=== PATIENT | male | born 1955 | race Caucasian/White ===

== ENCOUNTER → 2017-02-27 | Outpatient (CLI) | payer OTHER ==
[~2017-02-27] VITALS: Ht 167.6 cm; Wt 97.1 kg
[~2017-02-27] MED LIST: ATROVENT 00.5 MG/2.5 IH; AUGMENTIN875 MG PO; CLONAZEPAM0.5 MG PO; DAILY VITAMIN1 EAC8 PO; FLEXERIL10 MG PO; FLUOXETINE HCL20 MG PO; IRON325 MG PO; LOPID600 MG PO; MAXZIDE 75/501 EACH PO; METFORMIN HCL500 MG PO; NEURONTIN300 MG PO; ONE-A-DAY ESSE1 EAC1 PO; PENTOXIFYLLINE400 MG PO; PRAVACHOL40 MG PO; PRAVACHOL80 MG PO; PRILOSEC20 MG PO; PROAIR HFA8.5 GM IH; PROTONIX40 MG PO; PROZAC20 MG PO; REQUIP0.25 MG PO; REQUIP0.5 MG PO; TEMAZEPAM30 MG PO; THEO-DUR,THEOC200 MG PO; TYLENOL REGULA325 MG PO; ULTRAM50 MG PO; ZETIA10 MG PO
[2017-02-27 14:32] LABS: POINT-OF-CARE METER ID UU13113694
[2017-02-27 15:48] LABS: POINT-OF-CARE METER ID UU13113819
== END | disposition home or self-care (01) ==
LOC: AMB 12:56
PROVIDERS: Internal Medicine Gastroenterology
DX: Z12.11 Encounter for screening for malignant neoplasm of colon (principal); K26.9 Duodenal ulcer, unspecified as acute or chronic, without hemorrhage or perforation; Z86.010 Personal history of colon polyps; Z53.09 Procedure and treatment not carried out because of other contraindication; K29.70 Gastritis, unspecified, without bleeding; J44.9 Chronic obstructive pulmonary disease, unspecified; I10 Essential (primary) hypertension; K21.9 Gastro-esophageal reflux disease without esophagitis; E66.9 Obesity, unspecified; Z68.34 Body mass index [BMI] 34.0-34.9, adult
CPT/HCPCS: 80048; 82948; 88305; 88342 TC; J2250

== ENCOUNTER → 2017-06-01 | Outpatient (CLI) | payer OTHER ==
[~2017-06-01] VITALS: Ht 167.6 cm; Wt 99.3 kg
[~2017-06-01] MED LIST changes: +IRON325 M1 PO; +MULTIPLE VITAM1 EAC1 PO; -PENTOXIFYLLINE400 MG PO; +TRENTAL400 MG PO; +VENTOLIN HFA18 GM IH
[2017-06-01 14:44] LABS: POINT-OF-CARE METER ID UU14174212; POINT-OF-CARE USER ID AHSRSCGAB
== END | disposition home or self-care (01) ==
LOC: AMB 05-18 14:00
PROVIDERS: Internal Medicine Gastroenterology
PROC: 0DJD8ZZ Inspection of Lower Intestinal Tract, Via Natural or Artificial Opening Endoscopic (ICD-10-PCS; principal; 2017-06-01)
DX: Z12.11 Encounter for screening for malignant neoplasm of colon (principal); Z53.09 Procedure and treatment not carried out because of other contraindication; Z86.010 Personal history of colon polyps; K57.30 Diverticulosis of large intestine without perforation or abscess without bleeding; K64.8 Other hemorrhoids; K29.30 Chronic superficial gastritis without bleeding; K27.9 Peptic ulcer, site unspecified, unspecified as acute or chronic, without hemorrhage or perforation; K21.9 Gastro-esophageal reflux disease without esophagitis; J44.9 Chronic obstructive pulmonary disease, unspecified; Z79.84 Long term (current) use of oral hypoglycemic drugs; I83.018 Varicose veins of right lower extremity with ulcer other part of lower leg; I83.028 Varicose veins of left lower extremity with ulcer other part of lower leg; L97.819 Non-pressure chronic ulcer of other part of right lower leg with unspecified severity; L97.829 Non-pressure chronic ulcer of other part of left lower leg with unspecified severity; I10 Essential (primary) hypertension; E66.9 Obesity, unspecified; Z68.35 Body mass index [BMI] 35.0-35.9, adult
CPT/HCPCS: 82948; J2250; J3010

== ENCOUNTER 2018-03-31 22:59 | Emergency (ER) | payer OTHER ==
[~2018-03-31] VITALS: Ht 167.6 cm; Wt 106.7 kg
[2018-04-01 01:13] LABS: HEMATOCRIT 46.9 % (38.0-50.0); HEMOGLOBIN 15.9 G/DL (12.5-16.6); MCH 32.4 PG (29.0-34.0); MCHC 33.9 G/DL (30.0-36.0); MCV 95.5 FL (86-99); PLATELET COUNT 197 K/uL (156-360); RBC DIS.WIDTH-CV 14.3 % (11.8-14.6); RBC DIS.WIDTH-SD 50.4 % (39-53); RED BLOOD COUNT 4.91 M/uL (4.00-5.50)
[2018-04-01 01:22] LABS: CHLORIDE 110 mEq/L (99-109); POTASSIUM 3.7 mEq/L (3.7-5.4); SODIUM 144 mEq/L (136-147)
[2018-04-01 01:24] LABS: GLUCOSE 113 mg/dL (70-99)
[2018-04-01 01:27] LABS: CREATININE 0.7 mg/dL (0.6-1.3); GFR ESTIMATE (CALCULATED) > 59 mL/min/ (58.99-99999)
[2018-04-01 01:28] LABS: UREA NITROGEN (BUN) 22 mg/dL (9-23)
[2018-04-01] MEDS ORDERED: KENALOG,ARISTOC80 GM TP (01:41)
[2018-04-01] MEDS ORDERED: BACTROBAN CREAM15 GM TP (01:41)
[2018-04-01 01:51] VITALS: BP 180/90
== END 2018-04-01 01:52 | disposition home or self-care (01) ==
LOC: EME 22:59 → EXP 22:59
PROVIDERS: Physician Assistant
DX: R21 Rash and other nonspecific skin eruption (principal)
CPT/HCPCS: 80048; 85027; 99281; 99283